=== PATIENT | female | born 1990 | race Caucasian/White ===

== ENCOUNTER → 2017-07-01 | Emergency (ER) | payer OTHER ==
[~2017-07-01] VITALS: Ht 165.1 cm; Wt 88.5 kg
[~2017-07-01] MED LIST: LASIX20 MG; PEPCID40 MG PO; PNEU16DI2; PROGESTERONE200 MG PO; ULTRACET PO; ZOFRAN4 MG PO
== END | disposition home or self-care (01) ==
LOC: ER 15:20
DX: K52.89 Other specified noninfective gastroenteritis and colitis (principal)

== ENCOUNTER → 2017-10-23 | Emergency (ER) | payer OTHER ==
[~2017-10-23] VITALS: Ht 165.1 cm; Wt 90.7 kg
== END | disposition home or self-care (01) ==
LOC: ER 08:51
DX: K52.9 Noninfective gastroenteritis and colitis, unspecified (principal)

== ENCOUNTER 2017-10-27 18:46 | Emergency (ER) | payer OTHER ==
[~2017-10-27] VITALS: Ht 165.1 cm; Wt 90.7 kg
[2017-10-28] MEDS ORDERED: DELTASONE20 MG (12:31)
[2017-10-28] MEDS ORDERED: PEPCID20 MG (12:32)
[2017-10-28] MEDS ORDERED: MOXIFLOXACIN H400 MG (12:32)
[2017-10-28] MEDS ORDERED: CLOBETASOL PROP50 ML (12:33)
== END 2017-10-27 23:21 | disposition home or self-care (01) ==
LOC: ER 18:46
DX: H01.8 Other specified inflammations of eyelid (principal); T78.49XA Other allergy, initial encounter

== ENCOUNTER → 2017-10-28 | Emergency (ER) | payer OTHER ==
[~2017-10-28] VITALS: Ht 165.1 cm; Wt 86.2 kg
[~2017-10-28] MED LIST changes: +CLOBETASOL PROP50 ML; +DELTASONE20 MG; +MOXIFLOXACIN H400 MG; +PEPCID20 MG
== END | disposition home or self-care (01) ==
LOC: ER 11:56
DX: R22.0 Localized swelling, mass and lump, head (principal); T78.49XA Other allergy, initial encounter

== ENCOUNTER 2018-05-23 17:18 | Emergency (ER) | payer OTHER ==
[~2018-05-23] VITALS: Ht 162.6 cm; Wt 88.0 kg
== END 2018-05-23 20:52 | disposition home or self-care (01) ==
LOC: ER 17:18
DX: O20.8 Other hemorrhage in early pregnancy (principal); Z34.01 Encounter for supervision of normal first pregnancy, first trimester

== ENCOUNTER 2018-06-08 10:28 | Emergency (ER) | payer OTHER ==
[~2018-06-08] VITALS: Ht 160 cm; Wt 88.9 kg
== END 2018-06-08 16:39 | disposition home or self-care (01) ==
LOC: ER 10:28
DX: O00.101 Right tubal pregnancy without intrauterine pregnancy (principal); O08.89 Other complications following an ectopic and molar pregnancy

== ENCOUNTER 2019-03-22 23:12 | Emergency (ER) | payer OTHER ==
[~2019-03-22] VITALS: Ht 165.1 cm; Wt 96.2 kg
== END 2019-03-23 08:08 | disposition home or self-care (01) ==
LOC: ER 23:12
DX: L02.01 Cutaneous abscess of face (principal); K29.70 Gastritis, unspecified, without bleeding

== ENCOUNTER 2020-07-26 09:24 | Emergency (ER) | payer OTHER ==
[~2020-07-26] VITALS: Ht 160 cm; Wt 104.3 kg
[2020-07-26] MEDS ORDERED: LEVSIN/SL0.125 MG PO (14:12)
[2020-07-26] MEDS ORDERED: KETO10TA2 PO (14:12)
== END 2020-07-26 14:26 ==
LOC: ER 09:24
DX: R10.11 Right upper quadrant pain (principal); K80.50 Calculus of bile duct without cholangitis or cholecystitis without obstruction; K29.60 Other gastritis without bleeding; E86.0 Dehydration; Z20.822 Contact with and (suspected) exposure to COVID-19

== ENCOUNTER 2020-08-01 08:42 | Emergency (ER) | payer OTHER ==
[~2020-08-01] VITALS: Ht 160 cm; Wt 101.2 kg
[~2020-08-01 08:42] MED LIST changes: +KETO10TA2 PO; +LEVSIN/SL0.125 MG PO
[2020-08-01] MEDS ORDERED: PEPCID AC20 MG PO (08:54)
[2020-08-01] MEDS ORDERED: DICYCLOMIN10 MG/5 M1 PO (08:54)
[2020-08-01] MEDS ORDERED: BEYAZ 28 TABLE1 EACH PO (09:00)
[2020-08-01] MEDS ORDERED: METFORMIN HCL1000 M2 PO (09:00)
[2020-08-01] MEDS ORDERED: ULTRAM50 MG PO (15:02)
== END 2020-08-01 15:22 | disposition home or self-care (01) ==
LOC: ER 08:42
DX: K52.9 Noninfective gastroenteritis and colitis, unspecified (principal); R10.84 Generalized abdominal pain; E86.0 Dehydration

== ENCOUNTER 2021-09-12 09:22 | Outpatient (CLI) | payer OTHER ==
[~2021-09-12 09:22] MED LIST changes: +BEYAZ 28 TABLE1 EACH PO; +DICYCLOMIN10 MG/5 M1 PO; +METFORMIN HCL1000 M2 PO; +PEPCID AC20 MG PO; +ULTRAM50 MG PO
== END 2021-09-12 09:42 | disposition home or self-care (01) ==
LOC: RX STUDY 09:22
PROVIDERS: ATTEND Obstetrics & Gynecology Gynecology
DX: R10.2 Pelvic and perineal pain (principal)

== ENCOUNTER 2024-04-28 12:44 | Emergency (ER) | payer OTHER ==
[~2024-04-28] VITALS: Ht 160 cm; Wt 57.2 kg
[2024-04-28] MEDS ORDERED: SYMBICORT 16010.2 GM (13:15)
[2024-04-28 13:17] VITALS: BP 104/67; O2SAT 99
[2024-04-28] MEDS ORDERED: CIPRO500 MG PO (14:33)
== END 2024-04-28 15:27 | disposition home or self-care (01) ==
LOC: ER 12:46
DX: N39.0 Urinary tract infection, site not specified (principal); Z91.018 Allergy to other foods; R10.11 Right upper quadrant pain

== ENCOUNTER 2025-06-14 10:45 | Emergency (ER) | payer OTHER ==
[~2025-06-14] VITALS: Ht 160 cm; Wt 59.9 kg
[~2025-06-14 10:45] MED LIST changes: +CIPRO500 MG PO; +SYMBICORT 16010.2 GM
[2025-06-14 11:11] VITALS: BP 128/79; O2SAT 99
[2025-06-14] MEDS ORDERED: ZETIA10 MG PO (11:24)
[2025-06-14] MEDS ORDERED: MAXALT10 MG PO (11:24)
[2025-06-14] MEDS ORDERED: CITALOPRAM HBR10 MG PO (11:25)
[2025-06-14] MEDS ORDERED: RESTORIL15 MG PO (11:25)
[2025-06-14] MEDS ORDERED: FAMOTIDINE/PF 20 MG/2 ML VIAL IV STA (11:36)
[2025-06-14] MEDS ORDERED: 0.9 % SODIUM CHLORIDE 1,000 ML IV STA (11:36)
[2025-06-14] MEDS ORDERED: CEFTRIAXONE SODIUM 2,000 MG VIAL IV ONE (11:45)
[2025-06-14] MEDS ORDERED: KETOROLAC TROMETHAMINE 30 MG VIAL IV ONE (11:45)
[2025-06-14] MEDS ORDERED: KETOROLAC TROMETHAMINE 30 MG VIAL ONE (13:01)
[2025-06-14] MEDS ORDERED: CEFTRIAXONE SODIUM 2,000 MG VIAL ONE (13:01)
[2025-06-14] MEDS ORDERED: FAMOTIDINE/PF 20 MG/2 ML VIAL ONE (13:01)
[2025-06-14 14:43] LABS: BASO % 0.2 % (0.1-1.2); EOS # 0.06 (0.04-0.54); EOS % 0.4 % (0.7-7.0); LYMPH # 1.26 (1.18-3.74); LYMPH % 9.3 % (19.3-53.1); MEAN PLATELET VOLUME 9.20 fl (9.4-12.4); MONO # 0.82 (0.24-0.82); MONO % 6.0 % (4.7-12.5); NEUT # 11.32 (1.56-6.13); NEUT % 83.5 % (34.0-71.1); RED CELL DISTRIBUTION WIDTH 12.4 % (11.6-14.4)
[2025-06-14 14:53] LABS: URINE APPEARANCE Clear; URINE BILIRRUBIN Negative (NEGATIVE); URINE BLOOD Moderate; URINE COLOR Yellow; URINE GLUCOSE Negative (NEGATIVE); URINE KETONE Negative (NEGATIVE); URINE LEUKOCYTE Trace; URINE NITRATE Negative; URINE PROTEIN Negative (NEGATIVE); URINE UROBILINOGEN 0.2 E.U./dl
[2025-06-14 14:56] LABS: ERYTHROCYTE SEDIMENTATION RATE 14 mm/hr (0-20)
[2025-06-14 14:56] LABS: URINE BACTERIA 194.3 uL (0.0-1933); URINE EPITHELIAL CELLS 20.5 uL (0.0-38.8); URINE RBC 10.4 uL (0.0-20.8); URINE WBC 17.9 uL (0.0-23.2)
[2025-06-14 15:01] LABS: URINE CAST 0.00 uL (0.0-1.40)
[2025-06-14 15:08] LABS: INR 0.99
[2025-06-14 15:10] LABS: BUN CREA RATIO 21.0 (7.0-25.0); CREATININE SERUM 0.63 mg/dL (0.55-1.02); GFR 106.92; GLUCOSE FASTING 142.0 mg/dL (65-100); OSMOLALITY SERUM 288.0 MOSM/KG (275-295)
[2025-06-14] MEDS ORDERED: AMOX-CLAV 875-1 EACH PO (16:06)
== END 2025-06-14 17:23 | disposition home or self-care (01) ==
LOC: ER 10:46
PROVIDERS: General Practice
DX: L03.317 Cellulitis of buttock (principal); L02.31 Cutaneous abscess of buttock; J45.909 Unspecified asthma, uncomplicated; Z91.018 Allergy to other foods; Z88.8 Allergy status to other drugs, medicaments and biological substances; E11.9 Type 2 diabetes mellitus without complications